=== PATIENT | male | born 1985 | race Caucasian/White ===

== ENCOUNTER → 2024-07-20 08:04 | Outpatient (REF) | payer OTHER, SELFPAY | LOC: HWRAD 08:04 | PROVIDERS: ATTENDING PHYSICIAN Family Medicine | DX: R79.89 Other specified abnormal findings of blood chemistry (principal) | CPT/HCPCS: 76700 ==

== ENCOUNTER → 2024-07-21 12:24 | Outpatient (REF) | payer OTHER, SELFPAY | LOC: RAD 12:24 | PROVIDERS: ATTENDING PHYSICIAN Internal Medicine | DX: M54.16 Radiculopathy, lumbar region (principal) | CPT/HCPCS: 72114 ==

== ENCOUNTER → 2024-07-23 13:31 | Outpatient (REF) | payer OTHER, SELFPAY | LOC: MRI 3T 13:31 | PROVIDERS: ATTENDING PHYSICIAN Internal Medicine | DX: M54.16 Radiculopathy, lumbar region (principal) | CPT/HCPCS: 72148 ==

== ENCOUNTER 2024-11-30 06:33 | Day surgery (SDC) | payer OTHER, SELFPAY | END 2024-11-30 15:43 | disposition home or self-care (01) | LOC: GI 06:33 | PROVIDERS: ATTENDING PHYSICIAN Internal Medicine Gastroenterology; FAMILY PHYSICIAN Family Medicine | DX: Z12.11 Encounter for screening for malignant neoplasm of colon (principal); K64.8 Other hemorrhoids; K57.30 Diverticulosis of large intestine without perforation or abscess without bleeding; K22.89 Other specified disease of esophagus; K31.7 Polyp of stomach and duodenum; D12.5 Benign neoplasm of sigmoid colon; K29.50 Unspecified chronic gastritis without bleeding; K22.70 Barrett's esophagus without dysplasia; K86.89 Other specified diseases of pancreas; Z83.719 Family history of colon polyps, unspecified; Z80.0 Family history of malignant neoplasm of digestive organs | CPT/HCPCS: 45380; 43239; 88305; 88342 ==

== ENCOUNTER 2025-02-07 06:06 | Day surgery (SDC) | payer OTHER, SELFPAY ==
[2025-02-07 08:20] VITALS: BMI 32.1
[2025-02-07 08:21] VITALS: BMI 32.1
[2025-02-07 08:24] VITALS: BP 144/92
[2025-02-07 10:52] VITALS: BP 128/65
[2025-02-07 11:00] VITALS: BP 124/95
[2025-02-07 11:15] VITALS: BP 138/91
== END 2025-02-07 11:30 | disposition home or self-care (01) ==
LOC: GI 06:06
PROVIDERS: ATTENDING PHYSICIAN Internal Medicine Gastroenterology
DX: K31.7 Polyp of stomach and duodenum (principal)
CPT/HCPCS: 43251; 88305

== ENCOUNTER 2025-02-08 13:52 | Inpatient (IN) | payer OTHER, SELFPAY ==
[2025-02-08] VITALS (18 sets, daily range): BP systolic 13–152; BP diastolic 75–116; PULSE 80–128; BMI 31.6
--- NOTE | 2025-02-08 11:22 | ED.GENMED ---
History of Present Illness
<Crissy Girard PA-C - Last Filed: 02/08/25 13:42>
General
Chief Complaint: Fainting Sensation
Source: patient
Exam Limitations: none
Time Seen by Provider: 02/08/25 11:01
Nursing documentation reviewed up to this point in time: agreed with
History of Present Illness
History of Present Illness:
39-year-old male presenting to the emergency department after near syncopal event. Patient states he was walking up a hill while at work this morning while he became very lightheaded, diaphoretic, mildly short of breath and feeling as if he was
going to pass out. He did not fully lose consciousness. He also reports experiencing tunnel vision at that time and a few episodes of dry heaving.
Patient states this morning he had a bowel movement that was very dark, almost black. He denies any hemoptysis. He denies any abdominal pain, fever, or chills. Patient denies any chest pain or chest heaviness.
Of note�patient had an endoscopy performed yesterday with Dr. Holland and had multiple large polyps removed from his stomach.
Past History
<Crissy Girard PA-C - Last Filed: 02/08/25 13:42>
Past History
ED Past Medical History: None
ED Past Surgical History: None
Social History
Personal: Single
Review of Systems
<Crissy Girard PA-C - Last Filed: 02/08/25 13:42>
Review of Systems
Allergies reviewed?: Yes
All Other Systems: ROS reviewed and negative except as documented in HPI and ROS
Phy Exam
<Crissy Girard PA-C - Last Filed: 02/08/25 13:42>
Physical Exam
Physical Exam:
Vitals: Tachycardic, otherwise stable vital signs. Afebrile
General: Patient is in no acute distress
Skin: Warm and dry, no rashes or lesions
Head: Normocephalic, atraumatic
Eyes: Sclera nonicteric. EOMs intact. No nystagmus.
Throat: Protecting airway
Neck: Normal ROM, no cervical spine tenderness, no meningismus
Cardiac: Tachycardic, normal rhythm. No murmurs.
Pulm: Normal respiratory effort. Lungs clear bilaterally.
Abdomen: Abdomen soft and nontender.
Rectal: Black stool, heme positive
Extremities: No evidence of cyanosis or edema. Palpable DP pulses bilaterally
Neuro: AAOx3. Grossly intact.
Psychiatric: Normal affect.
Course
<Crissy Girard PA-C - Last Filed: 02/08/25 13:42>
Orders/Labs/Results
Orders:
Orders
02/08/25 09:52
Electrocardiogram (*1) Urgent
Reason for Study: Fatigue / Weakness
EKG- Treatment ONCE
02/08/25 11:22
Pantoprazole [Protonix IV] 80 mg IV NOW STA
02/08/25 11:33
0.9% Sodium Chloride 1000 ml [Nss] 1,000 ml IV BOLUS
02/08/25 11:59
Type+Screen Urgent
CMP [Comprehensive Metabolic Panel] Urgent
02/08/25 12:00
Pantoprazole 80 mg/100 ml Nss [Protonix] 80 mg in 100 ml IV Q10H
02/08/25 12:30
ABO2 Routine
BBK Wristband Number:
Associate notified that ABO2 has been ordered: [id number]
Date: 02/08/25
Time: 12:07
Shell Fisherman ID: [id number]
Complete Blood Count/With Diff Urgent
02/08/25 13:27
Hemoglobin Urgent
02/08/25 13:32
Admit/Transfer Patient As Directed
Co-Sign Provider:
Level of Care: Inpatient admission
Assign to:: Telemetry
Physician / Group: verenice
Diagnosis: GI bleed
Reason for Telemetry: Arrhythmia
Date to Stop Telemetry: 02/11/25
Time to Stop Telemetry: 11:00
Reason for Hospitalization: GI bleed
Expected length of stay greater than two midnights?: Yes
ELOS- Estimated Length of Stay in days: 3
I certify the patient meets the requirements for IP care: Yes
PRN Pain Medication Management As Directed
May give lesser potent ordered pain med per pt: Yes
preference::
Protocol:: Medication orders for pain may be administered in a
manner that supports deferring to patient preference
when the pt is:
- Requesting an ordered lesser potent pain medication.
Least to most potent pain medications are defined
as: acetaminophen < NSAID < tramadol < opioids
(morphine, oxycodone, hydromorphone).
- Requesting a lesser dose of the same medication IF
ORDERED.
- Requesting a less intrusive route of administration
if both routes are prescribed by the provider (PO <
IV).
02/08/25 13:33
Code Status As Directed
Resuscitation Status: Full Code
02/11/25 11:00
DC Protocol for Telemetry ONCE
Abnormal Lab Results
02/08/25 02/08/25
11:59 12:30
RBC 3.62 L 10^6/uL
(4.70-6.10)
Hgb 11.5 L g/dL
(13.0-18.0)
Hct 32.4 L %
(39.0-52.0)
MCH 31.8 H pg
(27.0-31.0)
Immature Gran % 0.6 H %
(0-0.5)
Potassium 5.4 H mmol/L
(3.5-5.1)
BUN 39 H mg/dl
(9-20)
ALT 59 H U/L
(0-50)
Albumin 5.2 H g/dl
(3.5-5.0)
02/08/25 11:59
Vital Signs
Initial and Last Documented VS:
Initial Vital Signs
Temp Pulse Resp BP Pulse Ox
98.0 F 130 20 132/96 99
02/08/25 09:52 02/08/25 09:52 02/08/25 09:52 02/08/25 09:52 02/08/25 09:52
Last Documented Vital Signs
Temp Pulse Resp BP Pulse Ox
98.0 F 95 16 140/89 98
02/08/25 09:52 02/08/25 13:00 02/08/25 13:00 02/08/25 13:00 02/08/25 13:00
<Meet Walker MD - Last Filed: 02/08/25 12:26>
Orders/Labs/Results
Orders:
Orders
02/08/25 09:52
Electrocardiogram (*1) Urgent
Reason for Study: Fatigue / Weakness
EKG- Treatment ONCE
02/08/25 11:22
Pantoprazole [Protonix IV] 80 mg IV NOW STA
02/08/25 11:33
0.9% Sodium Chloride 1000 ml [Nss] 1,000 ml IV BOLUS
02/08/25 11:59
Type+Screen Urgent
CMP [Comprehensive Metabolic Panel] Urgent
02/08/25 12:00
Pantoprazole 80 mg/100 ml Nss [Protonix] 80 mg in 100 ml IV Q10H
02/08/25 12:30
ABO2 Routine
BBK Wristband Number:
Associate notified that ABO2 has been ordered: [id number]
Date: 02/08/25
Time: 12:07
Shell Fisherman ID: [id number]
Complete Blood Count/With Diff Urgent
02/08/25 13:27
Hemoglobin Urgent
02/08/25 13:32
Admit/Transfer Patient As Directed
Co-Sign Provider:
Level of Care: Inpatient admission
Assign to:: Telemetry
Physician / Group: verenice
Diagnosis: GI bleed
Reason for Telemetry: Arrhythmia
Date to Stop Telemetry: 02/11/25
Time to Stop Telemetry: 11:00
Reason for Hospitalization: GI bleed
Expected length of stay greater than two midnights?: Yes
ELOS- Estimated Length of Stay in days: 3
I certify the patient meets the requirements for IP care: Yes
PRN Pain Medication Management As Directed
May give lesser potent ordered pain med per pt: Yes
preference::
Protocol:: Medication orders for pain may be administered in a
manner that supports deferring to patient preference
when the pt is:
- Requesting an ordered lesser potent pain medication.
Least to most potent pain medications are defined
as: acetaminophen < NSAID < tramadol < opioids
(morphine, oxycodone, hydromorphone).
- Requesting a lesser dose of the same medication IF
ORDERED.
- Requesting a less intrusive route of administration
if both routes are prescribed by the provider (PO <
IV).
02/08/25 13:33
Code Status As Directed
Resuscitation Status: Full Code
02/11/25 11:00
DC Protocol for Telemetry ONCE
Abnormal Lab Results
02/08/25 02/08/25
11:59 12:30
RBC 3.62 L 10^6/uL
(4.70-6.10)
Hgb 11.5 L g/dL
(13.0-18.0)
Hct 32.4 L %
(39.0-52.0)
MCH 31.8 H pg
(27.0-31.0)
Immature Gran % 0.6 H %
(0-0.5)
Potassium 5.4 H mmol/L
(3.5-5.1)
BUN 39 H mg/dl
(9-20)
ALT 59 H U/L
(0-50)
Albumin 5.2 H g/dl
(3.5-5.0)
02/08/25 11:59
Vital Signs
Initial and Last Documented VS:
Initial Vital Signs
Temp Pulse Resp BP Pulse Ox
98.0 F 130 20 132/96 99
02/08/25 09:52 02/08/25 09:52 02/08/25 09:52 02/08/25 09:52 02/08/25 09:52
Last Documented Vital Signs
Temp Pulse Resp BP Pulse Ox
98.0 F 95 16 140/89 98
02/08/25 09:52 02/08/25 13:00 02/08/25 13:00 02/08/25 13:00 02/08/25 13:00
<Crissy Girard PA-C - Last Filed: 02/08/25 13:42>
MDM/Problems Addressed
Differential Diagnosis Includes:
Not limited to: Postprocedural complication, upper GI bleeding, lower GI bleeding, acute dehydration, near syncope, etc.
MDM/Problems Addressed:
39-year-old male with upper endoscopy performed yesterday presenting after near syncopal event. Also history of black stools this morning. No fever, chest pain, shortness of breath. Patient tachycardic and hypertensive on arrival. Otherwise
stable vital signs. Afebrile. He is not hypoxic. Physical exam as above. Patient appears in no distress. Tachycardic with normal heart sounds. Lungs clear bilaterally. Abdomen soft and nontender. Rectal exam with black stool which is heme
positive. Patient is perfusing well. Given recent procedure and heme positive stools�suspect near syncopal event likely secondary to acute upper GI bleeding. Will send labs, type and screen. Will give 80 milligrams IV Protonix, IV fluids.
Update 11:30 AM: GI was contacted immediately to make aware. Will start PPI infusion. Blood consent signed. Labs are still pending as there is some lab dysfunction.
Update 12:52PM: Labs reviewed. Hemoglobin 11.5 which is down from prior of 15.2 although this was in 2013. BUN elevated. Suspect upper GI bleeding from recent endoscopy yesterday. Patient remains mildly tachycardic although normotensive and
stable. Will hold blood transfusion at this time. Patient will require admission for further hemoglobin trending, GI consult, possible intervention/blood transfusion if bleeding persist. Hospitalist aware.
Chronic conditions affecting care:
Recent endoscopy yesterday
Acute Exacerbation and/or Progression of Chronic Illness:
Acute upper GI bleeding
<Crissy Girard PA-C - Last Filed: 02/08/25 13:42>
*Pulse Oximetry
Patient hypoxic: no
*EKG
Interpreted by ED Provider?: Yes
EKG Intrepretation Date: 02/08/25
Interpretation: abnormal
Comparison EKG: no changes
Heart Rate: 105
Rate: tachycardiac
Rhythm: sinus
[place]: normal axis
Interval: normal QT interval
QRS Pattern: normal QRS
Ischemia: no ischemia
*Accounting Specialist Interpretation
Rate: tachycardiac
Interpretation: abnormal
Heart Rate: 110
Rhythm: sinus
*Critical Care Note
Total Time (30-74mins, 75-104mins- exclusive of procedures): Not Applicable
Data Reviewed
Review of Other/Old Records Reveals: Operative Reports (Endoscopy report from 02/07/[address] Holland-multiple polyps in stomach were removed, no complications at the time)
<Crissy Girard PA-C - Last Filed: 02/08/25 13:42>
Patient Management
Discussion with other providers: Hospitalist and Grommet Worker (Case discussed with gastroenterology)
Escalation/DeEscalation of care consider admission/obs:
Admit for hemoglobin trending, GI consult
ED Attending Note
<Crissy Girard PA-C - Last Filed: 02/08/25 13:42>
-
Portions of this chart may have been created with voice recognition software.� Occasional wrong word or��sound alike� substitutions may have occurred due to the inherent limitations of voice recognition software.
<Meet Walker MD - Last Filed: 02/08/25 12:26>
ED Attending Note
Patient seen and examined by attending physician: Yes
I performed the substantive portion of visit, reviewed & personally made and approve the management plan that is documented in note by myself or KAMILA.: Yes
ED Attending Note:
Patient with an upper endoscopy yesterday. Biopsies were done. [place] somewhat ill overnight. Near syncopal episode at work today. Black tarry stool today. Feels slightly improved at this time.
On exam patient nontoxic. Mildly tachycardic. Blood pressure stable. Perfusing well. Mild epigastric tenderness. No rebound or guarding no mass or hernia.
Impression upper GI bleed likely secondary to biopsies. Mildly tachycardic. . Type and screen done. GI contacted immediately. Protonix ordered.
1225... Patient's vital signs have remained relatively stable. Mildly tachycardic. However there are issues with his lab with hemoglobin.
Discharge Plan
Departure
Patient Disposition: Admit
Date of Disposition: 02/08/25
Time of Disposition: 12:48
Presentation/result/management discussed w/ accepting MD/DO: Hospitalist
Discharge Problem:
Acute upper GI bleeding
Prescriptions:
No Action
atorvastatin [Lipitor] 10 mg Tablet
10 mg PO DAILY
omeprazole [Prilosec] 20 mg Capsule,Delayed Release(Dr/Ec)
20 mg PO DAILY
Theragen Tablet
1 tab PO DAILY
omega 8-zfy-jmt-fish oil [Fish Oil] 1,000 (120-180) mg Capsule
1 cap PO DAILY
psyllium husk [Metamucil] 0.4 gram Capsule
2 g PO QID
Referrals:
Radha Yuen MD [Family Provider] -
Interventions
Interventions:
*Risk Screen - Suicide Last Done: 02/08/25 09:52
*General Assessment Last Done: 02/08/25 09:52
*Neglect/Abuse Screening Last Done: 02/08/25 09:52
*ED- Fall Risk Assessment Last Done: 02/08/25 09:52
*ED COVID-19 Vaccine History Last Done: 02/08/25 09:52
ED- Cardiac Assessment Last Done: 02/08/25 10:35
ED- Neurological Assessment Last Done: 02/08/25 10:35
Discharge Date and Time
Print Language: TAMAZIGHT
[2025-02-08] MEDS: PROTONIX IV 80 MG IV (11:45)
[2025-02-08] MEDS: NSS 1000 IV ×3 (11:46→21:54)
[2025-02-08 12:29] LABS: ALT (SGPT) 59 U/L (0-50); AST (SGOT) 35 U/L (17-59); Albumin 5.2 g/dl (3.5-5.0); Alkaline Phosphatase 39 U/L (38-126); Blood Urea Nitrogen 39 mg/dl (9-20); Calcium 9.7 mg/dl (8.4-10.2); Carbon Dioxide 27 mmol/L (22-30); Chloride 102 mmol/L (98-107); Glucose 93 mg/dl (70-99); Potassium 5.4 mmol/L (3.5-5.1); Sodium 140 mmol/L (135-145); Total Bilirubin 1.3 mg/dl (0.2-1.3); Total Protein 7.5 g/dl (6.3-8.2); eGFR > 60.00
[2025-02-08] MEDS: PROTONIX 100 IV ×2 (12:33→21:54)
[2025-02-08 12:39] LABS: % Basophils 0.4 % (0-2); % Eosinophils 0.6 % (0-6); % Immature Granulocytes 0.6 % (0-0.5); % Lymphocytes 23.7 % (20.5-51.1); % Neutrophils 66.7 % (42.2-75.2); Absolute Lymphocytes 1.7 10^3/uL (1.2-3.4); Absolute Monocytes 0.6 10^3/uL (0.1-0.6); Absolute Neutrophils 4.8 10^3/uL (1.4-6.5); Hematocrit 32.4 % (39.0-52.0); Hemoglobin 11.5 g/dL (13.0-18.0); Mean Corp Hgb Conc. 35.5 g/dL (33.0-37.0); Mean Corpuscular Hgb 31.8 pg (27.0-31.0); Mean Corpuscular Volume 89.5 fL (80.0-94.0); Mean Platelet Volume 10.4 fL (7.4-10.4); Nucleated Red Blood Cells % 0 % (-); Platelet Count 202 10^3/uL (130-400); Red Blood Cell Count 3.62 10^6/uL (4.70-6.10); Red Cell Dist. Width 11.9 % (11.5-14.5); White Blood Cell Count 7.1 10^3/uL (4.8-10.8)
--- NOTE | 2025-02-08 13:09 | HPS.HSE ---
Family Physician
-
Family Physician: Radha Yuen MD
Chief Complaint
-
near syncope
History of Present Illness
39-year-old male with PMH for GERD, HLD presenting to the emergency department for evaluation of near syncopal event. patient stated last night he was not sleeping well. he was getting night sweats, felt like his throats were closing up and was
having difficulty breath. this morning he went to work. today he had very black stool. Patient states he was walking up a uphill ramp, he felt lightheaded, diaphoretics, sob, dry heaving and tunnel vision. he lowered himself to the floor. stated
some abdominal discomfort at times. stated nausea. denied vomiting or diarrhea. denied fever, chills, chest pain. denied HILARIO. denied dysuria or hematuria.
Of note�patient had an endoscopy performed yesterday with Dr. Holland and had multiple large polyps removed from his stomach.
upon arrival his hgb was 11.5. Patient was a normal saline, Protonix drip. Admitted for further management
/
Medical History
Past Medical History
Past Medical History: Reports Other
Additional Past Medical History:
GERD, hyperlipidemia, tinnitus, hypertension
Past Surgical History: Reports None
Social History
Tobacco: Non-smoker
Alcohol: Occasional (4-6 beers 1 week)
Drug: None
Personal:
Living: With Family
Family History
Family History: Not pertinent
Allergies / Home Medications
Allergies reflects when Allergies were last updated in [employer].
Home Medications with original date entered in [employer]
Allergy/Medication List:
Allergies
Allergy/AdvReac Type Severity Reaction Status Date / Time
No Known Allergies Allergy Verified 02/08/25 09:55
Home Medications
atorvastatin 10 mg tablet (Lipitor) 10 mg PO DAILY High Cholesterol 02/07/25
omeprazole 20 mg capsule,delayed release 20 mg PO DAILY Gastrointestinal Issue 02/07/25
omega 4-ipq-wfy-fish oil 1,000 mg (120 mg-180 mg) capsule (Fish Oil) 1 cap PO DAILY Supplement 02/08/25
psyllium husk 0.4 gram capsule (Metamucil) 2 g PO QID Gastrointestinal Issue 02/08/25
therapeutic multivitamin 1 tab PO DAILY Supplement 02/08/25
Review of Systems
-
Constitutional: Reports No Symptoms
EENT: Reports No Symptoms
Respiratory: Reports Trouble Breathing
Cardiac: Reports No Symptoms
Abdomen/GI: Reports No Symptoms, Abdominal Pain and Nausea
: Reports No Symptoms
Musculoskeletal: Reports No Symptoms
Skin: Reports No Symptoms
Neurological: Reports Dizzy and Weakness
Endocrine: Reports No Symptoms
Hematologic/Lymphatic: Reports No Symptoms
Psych: Reports No Symptoms
Physical Exam
Vital Signs
Vital Signs
Temp Pulse Resp BP Pulse Ox
98.0 F 95 16 140/89 98
02/08/25 09:52 02/08/25 13:00 02/08/25 13:00 02/08/25 13:00 02/08/25 13:00
Physical Exam
General: Well Developed, Well Nourished and No Apparent Distress
HEENT: NormoCephalic
Respiratory: Clear
Cardiac: S1/S2 and Regular Rhythm; No Murmur or Rub
GI: Soft, Non Tender, Non Distended and Normal Bowel Sounds; No Organomegaly
Rectal: Deferred by Provider
Musculoskeletal: No Clubbing, No Cyanosis and No Edema
Skin: No Rash
Neuro: AO x 3 and Nonfocal/grossly intact
Psych: Calm
Laboratory Results
-
02/08/25 12:30
02/08/25 11:59
Laboratory Results
Total Bilirubin 1.3 mg/dl (0.2-1.3) 02/08/25 11:59
AST 35 U/L (17-59) 02/08/25 11:59
ALT 59 U/L (0-50) H 02/08/25 11:59
Alkaline Phosphatase 39 U/L (38-126) 02/08/25 11:59
Data Reviewed
-
Lab Data: Labs Reviewed by me
Impression/Plan
-
# Acute upper GI bleed/acute blood loss anemia
- Upper Endo as stated removed multiple polyps
- Heme positive
- GI consulted
- Blood consent
- IV Protonix drip
- Hemoglobin stable at 11.5, continue to trend hemoglobin
- Transfuse if hemoglobin less than 7
- Plan for EGD today
- Keep patient n.p.o.
# Near syncope likely from acute GI bleed
- EKG with sinus tachycardia with rate variation, nonspecific T wave abnormality
- Continue to monitor
# Hyperkalemia likely dehydration
- K5.4
- Fluids continued
- BMP in a.m.
# GERD
- IV PPI
# Hyperlipidemia
- Statin
# DVT prophylaxis
- SCD
# CODE STATUS full code
-
--- NOTE | 2025-02-08 13:26 | CON.GI ---
Addendum entered and electronically signed by Bere Monson MD 02/08/25 14:19:
I saw and examined the patient.
The SULFUR CHLORIDE OPERATOR's note was reviewed and I agree with the note.
--UGI bleeding - underwent EGD with removal of gastric polyps with 02/07
plan
NPO
continue PPI drip
monitor H/H
EGD today
Addendum entered and electronically signed by REJI Mayorga 02/08/25 13:46:
Will give dose of IV Reglan now prior to EGD to facilitate gastric emptying
Original Note:
Consultation
-
Date/Time Consultation Requested: 02/08/25 1300
Date/Time Consultation Performed: 02/08/25 1315
Requesting Provider: REJI Fernandez
Performing Provider: Dr. Monson/REJI Alarcon
Reason for Consultation: GI Bleed
Medical History
Chief Complaint / HPI
Chief Complaint: near syncope, melena
History of Present Illness:
39-year-old male with past medical history of hyperlipidemia, GERD, gastric fundic gland polyps status post EGD yesterday with removal presents to the emergency room today with nausea, dry heaves, near syncope and melena. Asked to evaluate for
upper GI bleed. The patient had an EGD performed yesterday with Dr. Holland that had multiple 4 to 15 mm sessile fundic gland polyps in the gastric body, incisura and gastric antrum. Polypectomy initially attempted using cold snare. Resection was
incomplete with this device. Therefore intervention required removal with hot snare. Resection and retrieval were complete. The patient states that he went home and initially felt fine. He had cabbage soup for dinner. He states that night he
started having a sensation of having cold sweats and an uneasy feeling throughout the evening. He states that he got up for work. He had a large black bowel movement in the morning. He drank a 'electrolyte drink that was clear liquid similar to
Gatorade'. He proceeded to work outside and he was walking up an incline when he felt his heart racing, dizzy and lightheaded. He lowered himself to the ground and he told his coworkers that he felt unwell. He was having dry heaves without any
vomiting. He continued to have cold sweats and heat waves. He is tachycardic here in the 100-110 range. Without any hypotension. Hemoglobin is checked and is 11.5. Prior baseline was around 15. BUN is elevated at 39 with normal creatinine 0.7.
The patient denies any vomiting, hematochezia, dysphagia or odynophasia. No early satiety or unintentional weight loss. He denies any NSAID use. He does take fish oil. He is on omeprazole 20 mg daily. He has had no further episodes of melena.
He denies any chest pain.
Past Medical History
Past Medical History: GERD and Hypercholesterolemia
Past Surgical History: None
Social History
Tobacco: Non-Smoker
Alcohol: Occasional (2-3 beers on the weekend)
Drug: None
Personal:
Living: With Family
Employment: Employed
Family History
Family History: Other (Family history of colon cancer in grandfather, no other GI malignancies or IBD)
Allergies / Home Medications
Allergy/AdvReac Type Severity Reaction Status Date / Time
No Known Allergies Allergy Verified 02/08/25 09:55
�Medication �Instructions �Recorded
atorvastatin 10 mg tablet (Lipitor) 10 mg PO DAILY High Cholesterol 02/07/25
omeprazole 20 mg capsule,delayed 20 mg PO DAILY Gastrointestinal 02/07/25
release Issue
omega 7-pjw-piq-fish oil 1,000 mg 1 cap PO DAILY Supplement 02/08/25
(120 mg-180 mg) capsule (Fish Oil)
psyllium husk 0.4 gram capsule 2 g PO QID Gastrointestinal Issue 02/08/25
(Metamucil)
therapeutic multivitamin 1 tab PO DAILY Supplement 02/08/25
Review of Systems
-
All other systems: A 12 pt ROS was Negative except as stated above in HPI
Vital Signs
Temp Pulse Resp BP Pulse Ox
98.0 F 95 16 140/89 98
02/08/25 09:52 02/08/25 13:00 02/08/25 13:00 02/08/25 13:00 02/08/25 13:00
Physical Exam
Exam
General: No Apparent Distress
HEENT: Anicteric
Respiratory: Clear
Cardiac: Regular Rhythm (Tachycardia at 100)
GI: Soft, Non Tender, Non Distended and Normal Bowel Sounds
Skin: Warm and Dry
Neuro: AO x 3
Psych: Calm
Results
WBC 7.1 10^3/uL (4.8-10.8) 02/08/25 12:30
Hgb 11.5 g/dL (13.0-18.0) L 02/08/25 12:30
Hct 32.4 % (39.0-52.0) L 02/08/25 12:30
MCV 89.5 fL (80.0-94.0) 02/08/25 12:30
Plt Count 202 10^3/uL (130-400) 02/08/25 12:30
Absolute Neuts (auto) 4.8 10^3/uL (1.4-6.5) 02/08/25 12:30
Sodium 140 mmol/L (135-145) 02/08/25 11:59
Potassium 5.4 mmol/L (3.5-5.1) H 02/08/25 11:59
Chloride 102 mmol/L (98-107) 02/08/25 11:59
Carbon Dioxide 27 mmol/L (22-30) 02/08/25 11:59
BUN 39 mg/dl (9-20) H 02/08/25 11:59
Creatinine 0.7 mg/dL (0.7-1.3) 02/08/25 11:59
Calcium 9.7 mg/dl (8.4-10.2) 02/08/25 11:59
Total Bilirubin 1.3 mg/dl (0.2-1.3) 02/08/25 11:59
AST 35 U/L (17-59) 02/08/25 11:59
ALT 59 U/L (0-50) H 02/08/25 11:59
Alkaline Phosphatase 39 U/L (38-126) 02/08/25 11:59
Diagnostic Image Results:
none
Prior GI Procedures:
EGD: 02/07/2025 EGD (Dr. Holland):- Normal esophagus.
- Multiple fundic gland polyps. Resected and retrieved.
- Normal duodenal bulb, first portion of the duodenum
and second portion of the duodenum.
Colonoscopy: 11/30/2024 (Dr. Monson)
- One 2 mm polyp in the sigmoid colon, removed with a
jumbo cold forceps. Resected and retrieved.
- Diverticulosis in the sigmoid colon.
- Internal hemorrhoids.
EGD 11/30/2024 (Dr. Monson)
- Z-line irregular, at the gastroesophageal junction.
Biopsied.
- Multiple gastric polyps. Biopsied.
- Gastritis. Biopsied.
- Normal examined duodenum.
Assessment / Plan
-
39-year-old male with past medical history of hyperlipidemia, GERD, gastric fundic gland polyps status post EGD yesterday with removal presents to the emergency room today with nausea, dry heaves, near syncope and melena. Asked to evaluate for
upper GI bleed. The patient had an EGD performed yesterday with Dr. Holland that had multiple 4 to 15 mm sessile fundic gland polyps in the gastric body, incisura and gastric antrum. Polypectomy initially attempted using cold snare. Resection was
incomplete with this device. Therefore intervention required removal with hot snare. Resection and retrieval were complete. Hemoglobin currently 11.5 with baseline around 15. BUN elevated at 39 with normal creatinine 0.7. Patient is tachycardic
with symptomatic near syncope event. Patient is only had clear liquid this morning in the form of electrolyte drink. Therefore we will proceed with endoscopic evaluation. Discussed with patient and his who are both agreeable.
Impression:
Acute upper GI bleed
Recent gastric polyp resection (02/07/2025)
Plan:
- N.p.o.
- IV fluids
- Pantoprazole bolus and drip
-Zofran for nausea
- EGD today
- Transfuse if hemoglobin less than 7, patient already gave verbal consent if needed during procedure.
- Continue to monitor hemoglobin.
- CBC, BMP in a.m.
- Further recommendations to be forthcoming after EGD performed.
-
-
Thank you for consultation and allowing me to participate in the patient's care. Please call the housing relocation GI physician during the after hours with any questions or concerns.
--- NOTE | 2025-02-08 13:40 | W.PN.UPDATE ---
Update Note
Progress Note Update
This is an addendum to the H&P written by Sejal Carreon on 02/08/2025.� Patient seen and examined independently with TRAINING DEVELOPER.
39-year-old male past medical history of hypertension, hyperlipidemia, GERD, presenting with near syncopal event.� Became lightheaded, diaphoretic and short of breath, dry heaving tunnel vision while walking up a hill.� This morning he had a very
dark almost black bowel movement.� No abdominal pain or vomiting.� Has dry heaving and epigastric discomfort.
He had endoscopy yesterday by Dr. Holland had multiple large polyps removed from the stomach.
Patient tachycardic.� EKG shows sinus tachycardia.
Hemoglobin of 11.5.� Potassium 5.4
Patient with post polypectomy gastric bleeding resulting in presyncope.� IV fluids given.� NPO.� IV fluids, Protonix drip started.� GI consulted, patient for EGD today.
[2025-02-08 15:24] LABS: Hemoglobin 11.8 g/dL (13.0-18.0)
[2025-02-08] MEDS: REGLAN 5 MG IV (17:01)
--- NOTE | 2025-02-08 17:17 | PTCARENOTE ---
Received patient around 1605 via stretcher in stable condition. Patient accompanied by . Patient and oriented to room and plan. Call flowers in reach.
[2025-02-08 18:42] LABS: Hematocrit 32.3 % (39.0-52.0); Hemoglobin 11.8 g/dL (13.0-18.0)
--- NOTE | 2025-02-08 19:22 | PTCARENOTE ---
Patient HR per tele monitor went up to the 140's. Patient was in the bathroom at the time. Patient had a large black semiformed bowel movement. Patient did c/o SOB and felt like his heart was pounding. Once returned to bed HR returned to 90-100.
Orthostatic VS done at that time was supine 136/88 HR 98, sitting 140/95 HR 106, standing 134/98 HR 125. Patient did c/o dizziness when standing. Dr. Salazar made aware of all findings. Night RN also aware.
[2025-02-08] MEDS: NSS 500 IV (19:51)
[2025-02-08 20:02] LABS: Hemoglobin 11.5 g/dL (13.0-18.0)
[2025-02-09] VITALS (7 sets, daily range): BP systolic 17–136; BP diastolic 67–92; PULSE 74–101
[2025-02-09] MEDS: NSS 1000 IV (06:07)
[2025-02-09 07:28] LABS: Hematocrit 30.6 % (39.0-52.0); Hemoglobin 10.9 g/dL (13.0-18.0)
[2025-02-09 07:32] LABS: Hematocrit 31.3 % (39.0-52.0); Hemoglobin 11.1 g/dL (13.0-18.0); Mean Corp Hgb Conc. 35.5 g/dL (33.0-37.0); Mean Corpuscular Hgb 32.2 pg (27.0-31.0); Mean Corpuscular Volume 90.7 fL (80.0-94.0); Mean Platelet Volume 10.9 fL (7.4-10.4); Platelet Count 182 10^3/uL (130-400); Red Blood Cell Count 3.45 10^6/uL (4.70-6.10); Red Cell Dist. Width 12.2 % (11.5-14.5); White Blood Cell Count 5.7 10^3/uL (4.8-10.8)
[2025-02-09] MEDS: LIPITOR 10 MG PO (07:47)
[2025-02-09] MEDS: PROTONIX 100 IV (07:47)
[2025-02-09 07:57] LABS: ALT (SGPT) 51 U/L (0-50); AST (SGOT) 35 U/L (17-59); Albumin 4.1 g/dl (3.5-5.0); Alkaline Phosphatase 50 U/L (38-126); Blood Urea Nitrogen 24 mg/dl (9-20); Calcium 8.7 mg/dl (8.4-10.2); Carbon Dioxide 24 mmol/L (22-30); Chloride 107 mmol/L (98-107); Estimated Creatinine Clearance > 125 ml/min; Glucose 102 mg/dl (70-99); Potassium 4.5 mmol/L (3.5-5.1); Sodium 142 mmol/L (135-145); Total Bilirubin 0.7 mg/dl (0.2-1.3); Total Protein 6.1 g/dl (6.3-8.2); eGFR > 60.00
--- NOTE | 2025-02-09 11:06 | CM ---
Reviewed the chart notes and spoke with the patient's spouse at the bedside. Patient off floor for testing. The patient resides with his spouse in a split level home with five steps to enter. The patient's spouse reports no DME/VN/SNF. The
patient's pharmacy of choice is [facility]. CM continues to be available to patient/family and is monitoring medical plan for needs at discharge.
Plan: Discharge to home when medically stable. No needs anticipated.
[2025-02-09] MEDS: REGLAN 5 MG IV (11:09)
--- NOTE | 2025-02-09 11:18 | W.PN.HOSP.TC ---
Addendum entered and electronically signed by Darian Matson MD 02/09/25 16:50:
Repeat hemoglobin mildly lower however patient has gotten fluids earlier. Patient ambulated and has no dizziness. Blood pressure stable. Wants to go home. Discharge home today with outpatient follow-up with GI and PCP
Time of discharge 37 minutes
Original Note:
Today's Communication/Plan
-
Monitor vital signs see plan
EGD today
Monitor hemoglobin
Monitor for further bleeding
PPI
Assessment / Plan
Assessment / Plan
General: Well Developed, Well Nourished and No Apparent Distress
HEENT: NormoCephalic
Respiratory: Clear
Cardiac: S1/S2 and Regular Rhythm; No Murmur or Rub
GI: Soft, Non Tender, Non Distended and Normal Bowel Sounds
Musculoskeletal: No Edema
Neuro: AO x 3 and Nonfocal/grossly intact
Psych: Calm
Acute upper GI bleed/acute blood loss anemia
- Upper Endo as stated removed multiple polyps
GI following, status post EGD on admission 02/08, suboptimal study has food particle was seen. EGD again 02/09 with nonbleeding gastric ulcers with possibility of small visible vessel. Monitor hemoglobin. PPI twice daily
Monitor hemoglobin
- Transfuse if hemoglobin less than 7
# Near syncope likely from acute GI bleed
- EKG with sinus tachycardia with rate variation, nonspecific T wave abnormality
- Continue to monitor
Advised patient to follow-up with PCP closely outpatient with possibility of quality assurance monitor final
# Hyperkalemia likely dehydration
Resolved
# GERD
PPI
# Hyperlipidemia
- Statin
# DVT prophylaxis
- SCD
# CODE STATUS full code
Anticipated Discharge: Within 24 hours
Subjective/Interval History
-
Date of Service: February 09, 2025
Some discomfort
Objective Data
-
Labs:
Laboratory Results
02/09/25 02/09/25 02/09/25
05:38 05:38 05:38
WBC 5.7
Hgb 10.9 L 11.1 L
Hct 30.6 L 31.3 L
Plt Count 182
Sodium 142
Potassium 4.5
Chloride 107
Carbon Dioxide 24
BUN 24 H
Creatinine 0.9
Glucose 102 H
Calcium 8.7
Total Bilirubin 0.7
AST 35
ALT 51 H
Alkaline Phosphatase 50
02/09/25
12:30
WBC
Hgb Pending
Hct Pending
Plt Count
Sodium
Potassium
Chloride
Carbon Dioxide
BUN
Creatinine
Glucose
Calcium
Total Bilirubin
AST
ALT
Alkaline Phosphatase
Vital Signs:
Vital Signs
Temp Pulse Resp BP Pulse Ox
98.4 F 79 16 118/79 100
02/09/25 07:05 02/09/25 07:05 02/09/25 07:05 02/09/25 07:05 02/09/25 07:05
I&O
02/08/25 02/09/25 02/10/25
06:59 06:59 06:59
Intake Total 2180 / 2180
Balance 2180 / 2180
[2025-02-09] MEDS: PROTONIX 40 MG PO (12:10)
[2025-02-09 12:41] LABS: Hematocrit 28.4 % (39.0-52.0); Hemoglobin 10.3 g/dL (13.0-18.0)
[2025-02-09 16:17] LABS: Hematocrit 27.3 % (39.0-52.0); Hemoglobin 9.9 g/dL (13.0-18.0)
--- NOTE | 2025-02-09 16:48 | W.DCSUMMARY ---
Discharge Summary
Discharge Data
Date of Admission: 02/08/25
Date of Discharge: 02/09/25
-
Pending Results: Yes
Hospital Course
39-year-old male with past ministry of GERD, hyperlipidemia, recent gastric polyp removal came to the hospital after endoscopy done outpatient with multiple polyp removal with upper GI bleed secondary to acute blood loss anemia after EGD. Patient
was seen by GI throughout hospitalization. On EGD there was a nonbleeding gastric ulcers with possibility of small visible vessel. Initially patient was on PPI drip which was later transitioned to p.o. PPI twice daily. Patient also had near
syncope on admission which continue to improve over time. After the EGD, patient was able to tolerate diet and was deemed stable to be discharged home. Once patient's symptoms were improving and he was feeling better, he was then discharged home
with instructions to follow-up closely with PCP and gastroenterology outpatient.
Discharge Plan
-
Patient Disposition: Home (Routine Discharge)
Discharge Diagnosis/Procedures: Acute upper GI bleed secondary to acute blood loss anemia from gastric ulcer and polyp removal
near syncope
Condition: Fair
Diet: Low Residue
Activity: As tolerated
Driving Restrictions: As prior to admission
Blood Work: CBC in 3 days with GI
Activity Restrictions/Additional Instructions:
Use Protonix (pantoprazole) 40 mg PO twice daily for 2 weeks then once daily
Referrals:
Bere Monson MD [Active] -
Radha Yuen MD [Family Provider] - in less than 1 week
Prescriptions:
New
pantoprazole 40 mg Tablet,Delayed Release (Dr/Ec)
40 mg PO BID Qty: 60 0RF
Continued
atorvastatin [Lipitor] 10 mg Tablet
10 mg PO DAILY
therapeutic multivitamin Tablet
1 tab PO DAILY
omega [id number] oil [Fish Oil] 1,000 (120-180) mg Capsule
1 cap PO DAILY
psyllium husk [Metamucil] 0.4 gram Capsule
2 g PO QID
Discontinued
omeprazole [Prilosec] 20 mg Capsule,Delayed Release(Dr/Ec)
20 mg PO DAILY
Discharge Orders:
Discharge Patient (As Directed); Ordered 02/09/25
Ordered By: Darian Matson
Discharge Date and Time
Discharge Date/Time: 02/09/25 17:30
Print Language: IRAQI
== END 2025-02-09 17:30 | disposition home or self-care (01) | DRG 378 ==
LOC: 2 SOUTH 13:52
PROVIDERS: Nurse Practitioner Gerontology; Physician Assistant; Registered Nurse; ADMITTING PHYSICIAN Hospitalist; ATTENDING PHYSICIAN Internal Medicine; CONSULT PHYSICIAN Internal Medicine Gastroenterology; EMERGENCY PHYSICIAN Emergency Medicine; FAMILY PHYSICIAN Family Medicine
PROC: 0DB68ZZ Excision of Stomach, Via Natural or Artificial Opening Endoscopic (ICD-10-PCS; 2025-02-08)
PROC: 0W3P8ZZ Control Bleeding in Gastrointestinal Tract, Via Natural or Artificial Opening Endoscopic (ICD-10-PCS; 2025-02-09)
DX: K25.4 Chronic or unspecified gastric ulcer with hemorrhage (principal); D62 Acute posthemorrhagic anemia; E86.0 Dehydration; E87.5 Hyperkalemia; K21.9 Gastro-esophageal reflux disease without esophagitis; E78.00 Pure hypercholesterolemia, unspecified; K31.7 Polyp of stomach and duodenum; K63.5 Polyp of colon; K57.30 Diverticulosis of large intestine without perforation or abscess without bleeding; K64.8 Other hemorrhoids; K29.70 Gastritis, unspecified, without bleeding; Z79.899 Other long term (current) drug therapy
CPT/HCPCS: 80053; 85014; 85018; 85025; 85027; 86850; 86900; 86901; 93005; 96361; 96365; 99284

== ENCOUNTER → 2025-03-22 13:57 | Outpatient (REF) | payer OTHER, SELFPAY | LOC: RAD 13:57 | PROVIDERS: ATTENDING PHYSICIAN Internal Medicine Gastroenterology; FAMILY PHYSICIAN Nurse Practitioner Adult Health | DX: R63.4 Abnormal weight loss (principal) | CPT/HCPCS: 74177; Q9967 ==